=== PATIENT | female | born 1965 | race African-American/Black ===

== ENCOUNTER 2016-12-15 09:43 | Inpatient (IN) | payer OTHER ==
[2016-12-15 11:22] VITALS: BMI 23.3
--- NOTE | 2016-12-15 12:36 | HP ---
COWS - Scale Resting Pulse: 1= [place] 81-100 Sweatin=Flushed/Facial Moisture Restless Observation: 1= Difficult to Sit Still Pupil Size: 0= Normal to Room Light Bone or Joint Aches: 2= Severe Diffuse Aches Runny Nose/ Eye Tearin= Runny Nose/Eyes GI Upset > 30mins: 2= Nausea/Diarrhea Tremor Observation: 2= Slight Tremor Visible Yawning Observation: 2= >3x During Session Anxiety or Irritability: 2=Irritable/Anxious Goose Flesh Skin: 3=Piloerection COWS Score: 19 CIWA Score - CIWA Score Nausea/Vomitin-Mild Nausea/No Vomiting Muscle Tremors: 4-Moderate,w/Arms Extend Anxiety: 4-Mod. Anxious/Guarded Agitation: 4-Moderately Restless Paroxysmal Sweats: 3 Orientation: 0-Oriented Tacttile Disturbances: 0-None Auditory Disturbances: 0-None Visual Disturbances: 0-None Headache: 0-None Present CIWA-Ar Total Score: 16 Admission ROS S - HPI Chief Complaint: I am tired. Allergies/Adverse Reactions: Allergies Allergy/AdvReac Type Severity Reaction Status Date / Time No Known Allergies Allergy Verified 12/15/16 11:40 History of Present Illness: pt is a 51yr old female with a history of alcohol and heroin dependence seeking detox for treatment. Exam Limitations: No Limitations - Ebola screening Have you traveled outside of the country in the last 21 days: No Have you had contact with anyone from an Ebola affected area: No Have you been sick,other than usual withdrawal symptoms: No - Review of Systems Constitutional: Chills, Diaphoresis, Loss of Appetite, Night Sweats, Changes in sleep, Unintentional Wgt. Loss EENT: reports: No Symptoms Reported Respiratory: reports: Cough Cardiac: reports: No Symptoms Reported GI: reports: Poor Appetite, Poor Fluid Intake : reports: No Symptoms Reported Musculoskeletal: reports: Back Pain, Joint Pain Integumentary: reports: Flushing, Sweating Neuro: reports: Tingling, Tremors Endocrine: reports: Excessive Sweating, Flushing, Intolerance to Cold, Intolerance to Heat Hematology: reports: No Symptoms Reported Psychiatric: reports: Judgement Intact, Mood/Affect Appropiate, Orientated x3, Agitated, Anxious Other Systems: Reviewed and Negative Patient History - Patient Medical History Hx Anemia: No Hx Asthma: No Hx Chronic Obstructive Pulmonary Disease (COPD): No Hx Cancer: No Hx Cardiac Disorders: No Hx Congestive Heart Failure: No Hx Hypertension: No Hx Hypercholesterolemia: No Hx Pacemaker: No HX Cerebrovascular Accident: No Hx Seizures: No Hx Dementia: No Hx Diabetes: No Hx Gastrointestinal Disorders: Yes (GERD) Hx Liver Disease: No Hx Genitourinary Disorders: No Hx Sexually Transmitted Disorders: No Hx Renal Disease (ESRD): No Hx Thyroid Disease: No Hx Human Immunodeficiency Virus (HIV): No Hx Hepatitis C: No Hx Depression: No Hx Suicide Attempt: No (denies) Hx Bipolar Disorder: No Hx Schizophrenia: No - Patient Surgical History Past Surgical History: Yes Hx Neurologic Surgery: No Hx Cataract Extraction: No Hx Cardiac Surgery: No Hx Lung Surgery: No Hx Breast Surgery: No Hx Breast Biopsy: Yes (11/2012 L breast biopsy benign) Hx Abdominal Surgery: Yes (s/p hepatic stent) Hx Appendectomy: No Hx Cholecystectomy: No Hx Genitourinary Surgery: No Hx Section: No Hx Orthopedic Surgery: No Hx Hysterectomy: No Anesthesia Reaction: No - PPD History Previous Implant?: Yes Documented Results: Negative w/o proof Implanted On Prior [facility] Admission?: Yes PPD to be Administered?: Yes - Reproductive History Patient is a Female of Child Bearing Age (11 -55 yrs old): Yes Last Menstrual Period: 07/12/11 Patient : No - Smoking Cessation Smoking history: Current every day smoker Aproximately how many cigarettes per day: 30 Hx Chewing Tobacco Use: No Initiated information on smoking cessation: Yes 'Breaking Loose' booklet given: 12/15/16 - Substance & Tx. History Hx Alcohol Use: Yes Hx Substance Use: Yes Substance Use Type: Alcohol, Heroin Hx Substance Use Treatment: No - Substances Abused Alcohol Route: Oral Frequency: Daily Amount used: 6PK BEER/ 1/2 PINT RUM Age of first use: 17 Date of Last Use: 12/15/16 Heroin Route: Inhalation Frequency: Daily Amount used: 2-3 BAGS Age of first use: 17 Date of Last Use: 12/14/16 Family Disease History - Family Disease History Family History: Denies Admission Physical Exam [facility] - Vital Signs Vital Signs: Vital Signs - 24 hr 12/15/16 11:18 Temperature 98 F Pulse Rate 85 Respiratory 20 Rate Blood Pressure 128/96 - Physical General Appearance: Yes: Appropriately Dressed, Moderate Distress, Tremorous, Irritable, Sweating, Anxious HEENTM: Yes: Normal Voice, Nasal Congestion Respiratory: Yes: Lungs Clear, Normal Breath Sounds, No Respiratory Distress Neck: Yes: No masses,lesions,Nodules Breast: Yes: Within Normal Limits Cardiology: Yes: Regular Rhythm, Regular Rate, S1, S2 Abdominal: Yes: Normal Bowel Sounds, Non Tender, Soft Genitourinary: Yes: Within Normal Limits Back: Yes: Normal Inspection Musculoskeletal: Yes: Back pain Neurological: Yes: Fully Oriented, Alert, Normal Response Integumentary: Yes: Diaphoresis Lymphatic: Yes: Within Normal Limits - Diagnostic (1) Alcohol dependence with uncomplicated withdrawal Current Visit: Yes Status: Chronic (2) Nicotine dependence Current Visit: Yes Status: Chronic Qualifiers: Nicotine product type: cigarettes Substance use status: uncomplicated Qualified Code(s): F17.210 - Nicotine dependence, cigarettes, uncomplicated (3) GERD (gastroesophageal reflux disease) Current Visit: Yes Status: Chronic Qualifiers: Esophagitis presence: without esophagitis Qualified Code(s): K21.9 - Gastro-esophageal reflux disease without esophagitis (4) Opioid dependence with withdrawal Current Visit: Yes Status: Chronic Cleared for Admission [facility] - Detox or Rehab [facility] Level of Care: Medically Managed Detox Regimen/Protocol: Methadone/Librium [facility] Breath Alcohol Content Breath Alcohol Content: 0.065 Urine Pregancy Test - Result Urine Test Results: Negative- NO Line Present Urine Drug Screen - Results Drug Screen Negative: No Urine Drug Screen Results: OPI-Opiates, BZO-Benzodiazepines
[2016-12-15] MEDS ORDERED: guaiFENesin/D-METHORPHAN HB 10 ML UNIT-DOSE CUPS PO PRN (12:37)
[2016-12-15] MEDS ORDERED: IBUPROFEN 400 MG TABLET (FP) PO PRN (12:37)
[2016-12-15] MEDS ORDERED: ACETAMINOPHEN 325 MG TABLET (FP) PO PRN (12:37)
[2016-12-15] MEDS ORDERED: NICOTINE POLACRILEX 4 MG GUM BUC PRN (12:37)
[2016-12-15] MEDS ORDERED: MAG HYDROX/AL HYDROX/SIMETH 30 ML UNIT-DOSE CUP PO PRN (12:37)
[2016-12-15] MEDS ORDERED: MENTHOL/PHENOL 1 EACH UD MM PRN (12:37)
[2016-12-15] MEDS ORDERED: MAGNESIUM CITRATE 300 ML BOTTLE PO PRN (12:37)
[2016-12-15] MEDS ORDERED: chlordiazePOXIDE HCL 25 MG CAPSULE PO PRN (12:37)
[2016-12-15] MEDS ORDERED: MAGNESIUM HYDROX 2400MG/30ML ORAL SUSPENSION 30 ML CUP PO PRN (12:37)
[2016-12-15] MEDS ORDERED: P-EPHED 60MG/TRIPROLIDI 2.5MG TABLET PO PRN (12:37)
[2016-12-15] MEDS ORDERED: LOPERAMIDE HCL 2 MG CAPSULE PO PRN (12:37)
[2016-12-15] MEDS ORDERED: hydrOXYzine PAMOATE 50 MG CAPSULE (FP) PO PRN (12:37)
[2016-12-15] MEDS ORDERED: chlordiazePOXIDE HCL 25 MG CAPSULE PO ONE ×2 (12:54→15:20)
[2016-12-15] MEDS ORDERED: METHADONE HCL 10 MG TABLET (FOR DETOX USE ONLY) PO ONE ×3 (12:55→23:00)
[2016-12-15] MEDS: chlordiazePOXIDE HCL 25 MG CAPSULE PO SCH ×2 (18:05→22:31)
[2016-12-15 20:21] LABS: URINE APPEARANCE CLEAR; URINE BILIRUBIN NEGATIVE (NEGATIVE); URINE BLOOD NEGATIVE (NEGATIVE); URINE COLOR COLORLESS; URINE GLUCOSE (UA) NEGATIVE (NEGATIVE); URINE KETONE NEGATIVE (NEGATIVE); URINE NITRITE NEGATIVE (NEGATIVE); URINE PROTEIN NEGATIVE (NEGATIVE); URINE UROBILINOGEN NEGATIVE E.U./dl (0.2-1.0)
[2016-12-15 21:05] LABS: URINE LEUK ESTERASE 1+ (NEGATIVE)
[2016-12-15 21:10] LABS: URINE RBC 2 /hpf (0-3); URINE WBC 1 /hpf (3-5)
[2016-12-15] MEDS: THIAMINE HCL 100 MG TABLET (FP) PO SCH (22:31)
[2016-12-15] MEDS: diphenhydrAMINE HCL 50 MG CAPSULE PO PRN (22:33)
[2016-12-16] MEDS: chlordiazePOXIDE HCL 25 MG CAPSULE PO SCH ×4 (05:28→22:54)
--- NOTE | 2016-12-16 09:22 | EKG ---
Test Reason : Blood Pressure : / mmHG Vent. Rate : 082 BPM Atrial Rate : 082 BPM P-R Int : 166 ms QRS Dur : 092 ms QT Int : 388 ms P-R-T Axes : 077 058 053 degrees QTc Int : 453 ms NORMAL SINUS RHYTHM VOLTAGE CRITERIA FOR LEFT VENTRICULAR HYPERTROPHY ABNORMAL ECG NO PREVIOUS ECGS AVAILABLE Confirmed by RYAN BELL MD ([id number]) on 12/16/2016 9:22:41 AM Referred By: Solo Farah Confirmed By:RYAN BELL MD
[2016-12-16] MEDS ORDERED: METHADONE HCL 10 MG TABLET (FOR DETOX USE ONLY) PO SCH (10:00)
[2016-12-16 10:03] LABS: MCH 33.6 pg (25.7-33.7); MCHC 33.4 g/dl (32.0-36.0); MEAN CELL VOLUME 100.4 fl (80-96); MEAN PLT VOLUME 7.8 fl (7.5-11.1); PLATELET COUNT 287 K/MM3 (134-434); RDW 12.5 % (11.6-15.6)
[2016-12-16 10:18] LABS: ALBUMIN 3.1 g/dl (3.4-5.0); ANION GAP 9 (8-16); CO2 27 mmol/L (21-32); GLUCOSE,RANDOM 75 mg/dL (74-106)
[2016-12-16] MEDS: NICOTINE 21 MG/24 HOURS TOPICAL PATCH TD SCH (10:20)
[2016-12-16] MEDS: PRENATAL VITAMINS W/ FOLIC ACID TABLET (FP) PO SCH (10:20)
[2016-12-16 10:23] LABS: ALK PHOS 128 U/L (45-117); BILIRUBIN,TOTAL 0.3 mg/dL (0.2-1.0); CREATININE 0.5 mg/dL (0.55-1.02); SGOT/AST 27 U/L (15-37); SGPT/ALT 29 U/L (12-78); TOT PROT 8.2 g/dl (6.4-8.2)
--- NOTE | 2016-12-16 11:09 | PN ---
[facility] CIWA - CIWA Score Nausea/Vomitin-No Nausea/No Vomiting Muscle Tremors: 4-Moderate,w/Arms Extend Anxiety: 3 Agitation: 4-Moderately Restless Paroxysmal Sweats: 3 Orientation: 0-Oriented Tacttile Disturbances: 0-None Auditory Disturbances: 0-None Visual Disturbances: 0-None Headache: 0-None Present CIWA-Ar Total Score: 14 S COWS - Scale Resting Pulse: 0= [place] 80 or Below Sweatin=Flushed/Facial Moisture Restless Observation: 1= Difficult to Sit Still Pupil Size: 0= Normal to Room Light Bone or Joint Aches: 2= Severe Diffuse Aches Runny Nose/ Eye Tearin= Runny Nose/Eyes GI Upset > 30mins: 0= None Tremor Observation of Outstretched Hands: 2= Slight Tremor Visible Yawning Observation: 0= None Anxiety or Irritability: 2=Irritable/Anxious Goose Flesh Skin: 3=Piloerection COWS Score: 14 [facility] Progress Note (SOAP) Subjective: agitation anxiety sweats interrupted sleep irritable Objective: 12/16/16 11:09 Vital Signs Temperature 98.4 F 12/16/16 10:12 Pulse Rate 75 12/16/16 10:12 Respiratory Rate 16 12/16/16 10:12 Blood Pressure 140/92 12/16/16 10:12 O2 Sat by Pulse Oximetry (%) Laboratory Tests 12/15/16 12/16/16 12/16/16 14:00 06:00 06:00 WBC 7.0 D RBC 3.79 Hgb 12.7 Hct 38.0 MCV 100.4 H MCHC 33.4 RDW 12.5 Plt Count 287 D MPV 7.8 Sodium 134 L Potassium 4.4 Chloride 98 Carbon Dioxide 27 Anion Gap 9 BUN 5 L D Creatinine 0.5 L D Creat Clearance w eGFR > 60 Random Glucose 75 Calcium 9.0 Total Bilirubin 0.3 D AST 27 D ALT 29 Alkaline Phosphatase 128 H Total Protein 8.2 Albumin 3.1 L D Urine Color Colorless Urine Appearance Clear Urine pH 5.0 Ur Specific [place] 1.002 Urine Protein Negative Urine Glucose (UA) Negative Urine Ketones Negative Urine Blood Negative Urine Nitrite Negative Urine Bilirubin Negative Urine Urobilinogen Negative Ur Leukocyte Esterase 1+ H Urine RBC 2 Urine WBC 1 Ur Epithelial Cells Rare awake/alert ambulating no acute distress Assessment: 12/16/16 11:09 withdrawal sx Plan: continue detox increase fluids
[2016-12-16] MEDS: diphenhydrAMINE HCL 50 MG CAPSULE PO PRN (22:54)
[2016-12-16] MEDS: THIAMINE HCL 100 MG TABLET (FP) PO SCH (22:54)
[2016-12-17] MEDS: chlordiazePOXIDE HCL 25 MG CAPSULE PO SCH ×2 (05:29→11:13)
[2016-12-17] MEDS: NICOTINE 21 MG/24 HOURS TOPICAL PATCH TD SCH (11:12)
[2016-12-17] MEDS: PRENATAL VITAMINS W/ FOLIC ACID TABLET (FP) PO SCH (11:12)
[2016-12-17] MEDS: METHADONE HCL 5 MG TABLET (FOR DETOX USE ONLY) PO SCH (11:16)
--- NOTE | 2016-12-17 17:11 | PN ---
S CIWA - CIWA Score Nausea/Vomitin-Mild Nausea/No Vomiting Muscle Tremors: 4-Moderate,w/Arms Extend Anxiety: 3 Agitation: 2 Paroxysmal Sweats: 3 Orientation: 0-Oriented Tacttile Disturbances: 2-Mild Itch/Numbness/Burn Auditory Disturbances: 0-None Visual Disturbances: 0-None Headache: 3-Moderate CIWA-Ar Total Score: 18 [facility] COWS - Scale Resting Pulse: 1= [place] 81-100 Sweatin= Chills/Flushing Restless Observation: 1= Difficult to Sit Still Pupil Size: 0= Normal to Room Light Bone or Joint Aches: 2= Severe Diffuse Aches Runny Nose/ Eye Tearin= Nasal Congestion GI Upset > 30mins: 1= Stomach Cramp Tremor Observation of Outstretched Hands: 2= Slight Tremor Visible Yawning Observation: 0= None Anxiety or Irritability: 2=Irritable/Anxious Goose Flesh Skin: 3=Piloerection COWS Score: 14 [facility] Progress Note (SOAP) Subjective: Tremors, Interrupted sleep, Body aches, Sweating. Objective: PT. A & O X 3, OBSERVED AMBULATING ON UNIT. 12/17/16 17:09 Vital Signs Temperature 97.9 F 12/17/16 14:35 Pulse Rate 79 12/17/16 14:35 Respiratory Rate 18 12/17/16 14:35 Blood Pressure 136/82 12/17/16 14:35 O2 Sat by Pulse Oximetry (%) Laboratory Last Values WBC 7.0 K/mm3 (4.0-10.0) D 12/16/16 06:00 RBC 3.79 M/mm3 (3.60-5.2) 12/16/16 06:00 Hgb 12.7 GM/dL (10.7-15.3) 12/16/16 06:00 Hct 38.0 % (32.4-45.2) 12/16/16 06:00 MCV 100.4 fl (80-96) H 12/16/16 06:00 MCHC 33.4 g/dl (32.0-36.0) 12/16/16 06:00 RDW 12.5 % (11.6-15.6) 12/16/16 06:00 Plt Count 287 K/MM3 (134-434) D 12/16/16 06:00 MPV 7.8 fl (7.5-11.1) 12/16/16 06:00 Sodium 134 mmol/L (136-145) L 12/16/16 06:00 Potassium 4.4 mmol/L (3.5-5.1) 12/16/16 06:00 Chloride 98 mmol/L (98-107) 12/16/16 06:00 Carbon Dioxide 27 mmol/L (21-32) 12/16/16 06:00 Anion Gap 9 (8-16) 12/16/16 06:00 BUN 5 mg/dL (7-18) L D 12/16/16 06:00 Creatinine 0.5 mg/dL (0.55-1.02) L D 12/16/16 06:00 Creat Clearance w eGFR > 60 (>60) 12/16/16 06:00 Random Glucose 75 mg/dL (74-106) 12/16/16 06:00 Calcium 9.0 mg/dL (8.5-10.1) 12/16/16 06:00 Total Bilirubin 0.3 mg/dL (0.2-1.0) D 12/16/16 06:00 AST 27 U/L (15-37) D 12/16/16 06:00 ALT 29 U/L (12-78) 12/16/16 06:00 Alkaline Phosphatase 128 U/L (45-117) H 12/16/16 06:00 Total Protein 8.2 g/dl (6.4-8.2) 12/16/16 06:00 Albumin 3.1 g/dl (3.4-5.0) L D 12/16/16 06:00 Urine Color Colorless 12/15/16 14:00 Urine Appearance Clear 12/15/16 14:00 Urine pH 5.0 (5.0-8.0) 12/15/16 14:00 Ur Specific [place] 1.002 (1.001-1.035) 12/15/16 14:00 Urine Protein Negative (NEGATIVE) 12/15/16 14:00 Urine Glucose (UA) Negative (NEGATIVE) 12/15/16 14:00 Urine Ketones Negative (NEGATIVE) 12/15/16 14:00 Urine Blood Negative (NEGATIVE) 12/15/16 14:00 Urine Nitrite Negative (NEGATIVE) 12/15/16 14:00 Urine Bilirubin Negative (NEGATIVE) 12/15/16 14:00 Urine Urobilinogen Negative E.U./dl (0.2-1.0) 12/15/16 14:00 Ur Leukocyte Esterase 1+ (NEGATIVE) H 12/15/16 14:00 Urine RBC 2 /hpf (0-3) 12/15/16 14:00 Urine WBC 1 /hpf (3-5) 12/15/16 14:00 Ur Epithelial Cells Rare /hpf (FEW) 12/15/16 14:00 RPR Titer Nonreactive (NONREACTIVE) 12/16/16 06:00 LABS NOTED. Assessment: 12/17/16 17:10 WITHDRAWAL SYMPTOMS. Plan: CONTINUE DETOX. ADVISED PATIENT TO FOLLOW-UP WITH [facility] / REHAB MEDICAL PROVIDER AFTER DISCHARGE FROM DETOX FOR GENERAL MEDICAL ASSESSMENT AND FOR ABNORMAL ADMISSION LAB VALUES.
[2016-12-17] MEDS: chlordiazePOXIDE 5 MG CAPSULE PO SCH ×2 (17:33→22:28)
[2016-12-17] MEDS: THIAMINE HCL 100 MG TABLET (FP) PO SCH (22:28)
[2016-12-17] MEDS: diphenhydrAMINE HCL 50 MG CAPSULE PO PRN (22:28)
[2016-12-18] MEDS: chlordiazePOXIDE 5 MG CAPSULE PO SCH ×2 (05:37→10:40)
[2016-12-18] MEDS: METHADONE HCL 5 MG TABLET (FOR DETOX USE ONLY) PO SCH (10:40)
[2016-12-18] MEDS: PRENATAL VITAMINS W/ FOLIC ACID TABLET (FP) PO SCH (10:40)
[2016-12-18] MEDS: NICOTINE 21 MG/24 HOURS TOPICAL PATCH TD SCH (10:42)
--- NOTE | 2016-12-18 16:40 | PN ---
[facility] Progress Note (SOAP) Subjective: Sweating, n/v/d, anxious, interrupted sleep Objective: 12/18/16 16:38 Last Vital Signs Temp Pulse Resp BP Pulse Ox 97.9 F 75 18 144/90 12/18/16 14:17 12/18/16 14:17 12/18/16 14:17 12/18/16 14:17 Laboratory Tests 12/15/16 12/16/16 12/16/16 14:00 06:00 06:00 WBC 7.0 D RBC 3.79 Hgb 12.7 Hct 38.0 MCV 100.4 H MCHC 33.4 RDW 12.5 Plt Count 287 D MPV 7.8 Sodium 134 L Potassium 4.4 Chloride 98 Carbon Dioxide 27 Anion Gap 9 BUN 5 L D Creatinine 0.5 L D Creat Clearance w eGFR > 60 Random Glucose 75 Calcium 9.0 Total Bilirubin 0.3 D AST 27 D ALT 29 Alkaline Phosphatase 128 H Total Protein 8.2 Albumin 3.1 L D Urine Color Colorless Urine Appearance Clear Urine pH 5.0 Ur Specific [place] 1.002 Urine Protein Negative Urine Glucose (UA) Negative Urine Ketones Negative Urine Blood Negative Urine Nitrite Negative Urine Bilirubin Negative Urine Urobilinogen Negative Ur Leukocyte Esterase 1+ H Urine RBC 2 Urine WBC 1 Ur Epithelial Cells Rare RPR Titer 12/16/16 06:00 WBC RBC Hgb Hct MCV MCHC RDW Plt Count MPV Sodium Potassium Chloride Carbon Dioxide Anion Gap BUN Creatinine Creat Clearance w eGFR Random Glucose Calcium Total Bilirubin AST ALT Alkaline Phosphatase Total Protein Albumin Urine Color Urine Appearance Urine pH Ur Specific [place] Urine Protein Urine Glucose (UA) Urine Ketones Urine Blood Urine Nitrite Urine Bilirubin Urine Urobilinogen Ur Leukocyte Esterase Urine RBC Urine WBC Ur Epithelial Cells RPR Titer Nonreactive Labs noted Assessment: 12/18/16 16:39 Withdrawal symptoms Plan: Continue detox
[2016-12-18] MEDS: chlordiazePOXIDE HCL 10 MG CAPSULE PO SCH ×2 (17:29→22:25)
[2016-12-18] MEDS: THIAMINE HCL 100 MG TABLET (FP) PO SCH (22:25)
[2016-12-18] MEDS: diphenhydrAMINE HCL 50 MG CAPSULE PO PRN (22:25)
[2016-12-19] MEDS: chlordiazePOXIDE HCL 10 MG CAPSULE PO SCH ×2 (05:20→10:52)
[2016-12-19] MEDS ORDERED: METHADONE HCL 10 MG TABLET (FOR DETOX USE ONLY) PO SCH (10:00)
[2016-12-19] MEDS: PRENATAL VITAMINS W/ FOLIC ACID TABLET (FP) PO SCH (10:52)
[2016-12-19] MEDS: NICOTINE 21 MG/24 HOURS TOPICAL PATCH TD SCH (10:53)
--- NOTE | 2016-12-19 12:39 | PN ---
[facility] Progress Note (SOAP) Subjective: interrupted sleep, sweats, Objective: 12/19/16 12:36 Vital Signs Temperature 97.5 F L 12/19/16 09:52 Pulse Rate 85 12/19/16 09:52 Respiratory Rate 20 12/19/16 09:52 Blood Pressure 122/78 12/19/16 09:52 O2 Sat by Pulse Oximetry (%) Laboratory Tests 12/15/16 12/16/16 12/16/16 14:00 06:00 06:00 WBC 7.0 D RBC 3.79 Hgb 12.7 Hct 38.0 MCV 100.4 H MCHC 33.4 RDW 12.5 Plt Count 287 D MPV 7.8 Sodium 134 L Potassium 4.4 Chloride 98 Carbon Dioxide 27 Anion Gap 9 BUN 5 L D Creatinine 0.5 L D Creat Clearance w eGFR > 60 Random Glucose 75 Calcium 9.0 Total Bilirubin 0.3 D AST 27 D ALT 29 Alkaline Phosphatase 128 H Total Protein 8.2 Albumin 3.1 L D Urine Color Colorless Urine Appearance Clear Urine pH 5.0 Ur Specific [place] 1.002 Urine Protein Negative Urine Glucose (UA) Negative Urine Ketones Negative Urine Blood Negative Urine Nitrite Negative Urine Bilirubin Negative Urine Urobilinogen Negative Ur Leukocyte Esterase 1+ H Urine RBC 2 Urine WBC 1 Ur Epithelial Cells Rare RPR Titer 12/16/16 06:00 WBC RBC Hgb Hct MCV MCHC RDW Plt Count MPV Sodium Potassium Chloride Carbon Dioxide Anion Gap BUN Creatinine Creat Clearance w eGFR Random Glucose Calcium Total Bilirubin AST ALT Alkaline Phosphatase Total Protein Albumin Urine Color Urine Appearance Urine pH Ur Specific [place] Urine Protein Urine Glucose (UA) Urine Ketones Urine Blood Urine Nitrite Urine Bilirubin Urine Urobilinogen Ur Leukocyte Esterase Urine RBC Urine WBC Ur Epithelial Cells RPR Titer Nonreactive pt aox3 in nad ambulating Assessment: 12/19/16 12:37 withdrawal sx's Plan: cont. detox increase fluids d/c in am
[2016-12-19] MEDS: THIAMINE HCL 100 MG TABLET (FP) PO SCH (22:28)
[2016-12-19] MEDS: diphenhydrAMINE HCL 50 MG CAPSULE PO PRN (22:28)
[2016-12-20] MEDS ORDERED: METHADONE HCL 5 MG TABLET (FOR DETOX USE ONLY) PO SCH (06:00)
[2016-12-20 06:55] VITALS: BP 125/70; PULSE 66; TEMP 97.7
--- NOTE | 2016-12-20 08:36 | DS ---
[facility] Detox Discharge Summary Admission Date: 12/15/16 Discharge Date: 12/20/16 - History Present History: Alcohol Dependence, Opioid Dependence - Physical Exam Results Vital Signs: Vital Signs Temperature 97.7 F 12/20/16 06:00 Pulse Rate 66 12/20/16 06:00 Respiratory Rate 18 12/20/16 06:00 Blood Pressure 125/70 12/20/16 06:00 O2 Sat by Pulse Oximetry (%) - Treatment Hospital Course: Detox Protocol Followed, Detoxed Safely, Responded well, Discharged Condition Good - Medication Discharge Medications: Ambulatory Orders NK [No Known Home Medication] 06/05/15 - AMA Did Patient Leave Against Medical Advice: No
[2016-12-20] MEDS: PRENATAL VITAMINS W/ FOLIC ACID TABLET (FP) PO SCH (09:55)
[2016-12-20] MEDS: NICOTINE 21 MG/24 HOURS TOPICAL PATCH TD SCH (09:55)
== END 2016-12-20 09:54 | disposition home or self-care (01) | DRG 773 ==
LOC: YASAS 09:43 → Y6N 11:58
PROVIDERS: ADMIT Internal Medicine Addiction Medicine; ATTEND Internal Medicine Addiction Medicine
PROC: HZ2ZZZZ Detoxification Services for Substance Abuse Treatment (ICD-10-PCS; principal; 2016-12-20)
DX: F11.23 Opioid dependence with withdrawal (principal); F10.230 Alcohol dependence with withdrawal, uncomplicated; F17.210 Nicotine dependence, cigarettes, uncomplicated; K21.9 Gastro-esophageal reflux disease without esophagitis
CPT/HCPCS: 36415; 80053; 81003; 81015; 85027; 86593; 93005; 93010

== ENCOUNTER 2017-09-29 11:32 | Inpatient (IN) | payer OTHER ==
[2017-09-29 15:58] VITALS: BMI 25.1
--- NOTE | 2017-09-29 18:35 | HP ---
CIWA Score - CIWA Score Nausea/Vomitin Muscle Tremors: 4-Moderate,w/Arms Extend Anxiety: 4-Mod. Anxious/Guarded Agitation: 2 Paroxysmal Sweats: 3 Orientation: 0-Oriented Tacttile Disturbances: 0-None Auditory Disturbances: 0-None Visual Disturbances: 0-None Headache: 0-None Present CIWA-Ar Total Score: 16 Admission ROS S - HPI Chief Complaint: Alcohol withdrawal symptoms Allergies/Adverse Reactions: Allergies Allergy/AdvReac Type Severity Reaction Status Date / Time No Known Allergies Allergy Verified 09/29/17 16:42 History of Present Illness: 52 years old female with history of alcohol dependence is seeking admission to detox. Patient has been in previous detox and reports 3 years of sobriety. Denies suicidal ideation at this time. She has medical history HTN, GERD and depression. Patient is Methadone 60 mg oral daily with [facility] M[facility]. LDM . Dose is to be confirmed by the nurse. - Ebola screening Have you traveled outside of the country in the last 21 days: No Have you had contact with anyone from an Ebola affected area: No Have you been sick,other than usual withdrawal symptoms: No - Review of Systems Constitutional: Chills, Loss of Appetite, Malaise, Night Sweats, Weakness EENT: reports: No Symptoms Reported Respiratory: reports: No Symptoms reported Cardiac: reports: No Symptoms Reported GI: reports: Nausea, Poor Appetite, Poor Fluid Intake : reports: No Symptoms Reported Musculoskeletal: reports: No Symptoms Reported Integumentary: reports: No Symptoms Reported, Dryness, Flushing Neuro: reports: Headache, Tingling, Tremors, Weakness Endocrine: reports: No Symptoms Reported Hematology: reports: No Symptoms Reported Psychiatric: reports: Mood/Affect Appropiate, Orientated x3, Agitated, Anxious Other Systems: Reviewed and Negative Patient History - Patient Medical History Hx Anemia: No Hx Asthma: No Hx Chronic Obstructive Pulmonary Disease (COPD): No Hx Cancer: No Hx Cardiac Disorders: No Hx Congestive Heart Failure: No Hx Hypertension: Yes Hx Hypercholesterolemia: No Hx Pacemaker: No HX Cerebrovascular Accident: No Hx Seizures: No Hx Dementia: No Hx Diabetes: No Hx Gastrointestinal Disorders: Yes (GERD) Hx Liver Disease: No Hx Genitourinary Disorders: No Hx Sexually Transmitted Disorders: No Hx Renal Disease (ESRD): No Hx Thyroid Disease: No Hx Human Immunodeficiency Virus (HIV): No Hx Hepatitis C: No Hx Depression: Yes Hx Suicide Attempt: No (Denies suicidal ideation at this time) Hx Bipolar Disorder: No Hx Schizophrenia: No - Patient Surgical History Past Surgical History: Yes Hx Neurologic Surgery: No Hx Cataract Extraction: No Hx Cardiac Surgery: No Hx Lung Surgery: No Hx Breast Surgery: No Hx Breast Biopsy: Yes (11/2012 L breast biopsy benign) Hx Abdominal Surgery: Yes (s/p hepatic stent) Hx Appendectomy: No Hx Cholecystectomy: No Hx Genitourinary Surgery: No Hx Section: No Hx Orthopedic Surgery: No Hx Hysterectomy: No Anesthesia Reaction: No - PPD History Previous Implant?: Yes Documented Results: Negative w/proof Implanted On Prior [facility] Admission?: No Date: 12/17/16 Results: 0 mm PPD to be Administered?: Yes - Reproductive History Patient is a Female of Child Bearing Age (11 -55 yrs old): Yes Last Menstrual Period: 07/12/11 Patient : No - Smoking Cessation Smoking history: Current every day smoker Aproximately how many cigarettes per day: 30 Hx Chewing Tobacco Use: No Initiated information on smoking cessation: No 'Breaking Loose' booklet given: 09/29/17 - Substance & Tx. History Hx Alcohol Use: Yes Substance Use Type: Alcohol Hx Substance Use Treatment: Yes ([facility] ) - Substances Abused Alcohol Route: Oral Frequency: Daily Amount used: liquor- 1 pint, beer- 2 six pack Age of first use: 14 Date of Last Use: 09/29/17 Family Disease History - Family Disease History Family History: Denies Admission Physical Exam [facility] - Vital Signs Vital Signs: Vital Signs - 24 hr 09/29/17 15:55 Temperature 96.4 F L Pulse Rate 91 H Respiratory 20 Rate Blood Pressure 164/90 - Physical General Appearance: Yes: Moderate Distress HEENTM: Yes: EOMI, Normal ENT Inspection, Normal Voice, DOROTHY, Other (missing upper teeth) Respiratory: Yes: Normal Breath Sounds, No Respiratory Distress Neck: Yes: Supple Breast: Yes: Breast Exam Deferred Cardiology: Yes: Regular Rhythm, Regular Rate, S1, S2 Abdominal: Yes: Normal Bowel Sounds, Soft Genitourinary: Yes: Within Normal Limits Back: Yes: Within Normal Limits Musculoskeletal: Yes: Within Normal Limits, Muscle Pain Extremities: Yes: Tremors Neurological: Yes: Within Normal Limits Integumentary: Yes: Within Normal Limits Lymphatic: Yes: Within Normal Limits - Diagnostic (1) HTN (hypertension) Current Visit: Yes Status: Chronic (2) Alcohol dependence with uncomplicated withdrawal Current Visit: Yes Status: Chronic (3) GERD (gastroesophageal reflux disease) Current Visit: Yes Status: Chronic Qualifiers: Esophagitis presence: without esophagitis Qualified Code(s): K21.9 - Gastro -esophageal reflux disease without esophagitis (4) Nicotine dependence Current Visit: Yes Status: Chronic Qualifiers: Nicotine product type: cigarettes Substance use status: uncomplicated Qualified Code(s): F17.210 - Nicotine dependence, cigarettes, uncomplicated (5) Depression Current Visit: Yes Status: Chronic Cleared for Admission S - Detox or Rehab [facility] Level of Care: Medically Managed Detox Regimen/Protocol: Librium [facility] Breath Alcohol Content Breath Alcohol Content: 0.087 Urine Pregancy Test - Result Urine Test Results: Negative- NO Line Present Urine Drug Screen - Results Drug Screen Negative: No Urine Drug Screen Results: OPI-Opiates, BZO-Benzodiazepines, MTD-Methadone
[2017-09-29] MEDS ORDERED: guaiFENesin/D-METHORPHAN HB 10 ML UNIT-DOSE CUPS PO PRN (18:42)
[2017-09-29] MEDS ORDERED: ACETAMINOPHEN 325 MG TABLET (FP) PO PRN (18:42)
[2017-09-29] MEDS ORDERED: NICOTINE POLACRILEX 2 MG GUM BC PRN (18:42)
[2017-09-29] MEDS ORDERED: LOPERAMIDE HCL 2 MG CAPSULE PO PRN (18:42)
[2017-09-29] MEDS ORDERED: MAG HYDROX/AL HYDROX/SIMETH 30 ML UNIT-DOSE CUP PO PRN (18:42)
[2017-09-29] MEDS ORDERED: MAGNESIUM CITRATE 300 ML BOTTLE PO PRN (18:42)
[2017-09-29] MEDS ORDERED: P-EPHED 60MG/TRIPROLIDI 2.5MG TABLET PO PRN (18:42)
[2017-09-29] MEDS ORDERED: MAGNESIUM HYDROX 2400MG/30ML ORAL SUSPENSION 30 ML CUP PO PRN (18:42)
[2017-09-29] MEDS ORDERED: IBUPROFEN 400 MG TABLET (FP) PO PRN (18:42)
[2017-09-29] MEDS ORDERED: MENTHOL/PHENOL 1 EACH UD MM PRN (18:42)
[2017-09-29] MEDS: chlordiazePOXIDE HCL 25 MG CAPSULE PO PRN (20:18)
[2017-09-29] MEDS: THIAMINE HCL 100 MG TABLET (FP) PO SCH (22:08)
[2017-09-29] MEDS: chlordiazePOXIDE HCL 25 MG CAPSULE PO SCH (22:08)
[2017-09-29 22:52] LABS: URINE APPEARANCE SLCLOUDY; URINE BILIRUBIN NEGATIVE (NEGATIVE); URINE BLOOD NEGATIVE (NEGATIVE); URINE COLOR LTYELLOW; URINE GLUCOSE (UA) NEGATIVE (NEGATIVE); URINE KETONE NEGATIVE (NEGATIVE); URINE LEUK ESTERASE TRACE (NEGATIVE); URINE NITRITE NEGATIVE (NEGATIVE); URINE PROTEIN NEGATIVE (NEGATIVE); URINE UROBILINOGEN NEGATIVE mg/dL (0.2-1.0)
[2017-09-29 23:07] LABS: EPI CELLS FEW /HPF (FEW); URINE BACTERIA RARE /hpf (NONE SEEN); URINE MUCUS RARE
[2017-09-30] MEDS: chlordiazePOXIDE HCL 25 MG CAPSULE PO SCH ×4 (05:07→22:07)
[2017-09-30 10:02] LABS: ALBUMIN 3.4 g/dl (3.4-5.0); ANION GAP 10 (8-16); CALCIUM 8.7 mg/dL (8.5-10.1); CHLORIDE 88 mmol/L (98-107); CO2 27 mmol/L (21-32); GLUCOSE,RANDOM 79 mg/dL (74-106); SGOT/AST 22 U/L (15-37); SGPT/ALT 16 U/L (12-78); SODIUM 125 mmol/L (136-145)
[2017-09-30 10:03] LABS: HEMATOCRIT 38.4 % (32.4-45.2); HEMOGLOBIN 12.5 GM/dL (10.7-15.3); MCH 32.3 pg (25.7-33.7); MCHC 32.5 g/dl (32.0-36.0); MEAN CELL VOLUME 99.4 fl (80-96); MEAN PLT VOLUME 7.9 fl (7.5-11.1); PLATELET COUNT 324 K/MM3 (134-434); RBC 3.87 M/mm3 (3.60-5.2); RDW 12.7 % (11.6-15.6); WHITE BLOOD COUNT 11.2 K/mm3 (4.0-10.0)
[2017-09-30 10:06] LABS: ALK PHOS 154 U/L (45-117); BILIRUBIN,TOTAL 0.5 mg/dL (0.2-1.0); BLOOD UREA NITROGEN 3 mg/dL (7-18); CREATININE 0.5 mg/dL (0.55-1.02)
[2017-09-30] MEDS: PRENATAL VITAMINS W/ FOLIC ACID TABLET (FP) PO SCH (10:09)
[2017-09-30] MEDS: NICOTINE 14 MG/24 HOURS TOPICAL PATCH TD SCH (10:10)
--- NOTE | 2017-09-30 11:27 | PN ---
S CIWA - CIWA Score Nausea/Vomitin-Mild Nausea/No Vomiting Muscle Tremors: 4-Moderate,w/Arms Extend Anxiety: 4-Mod. Anxious/Guarded Agitation: 4-Moderately Restless Paroxysmal Sweats: 3 Orientation: 0-Oriented Tacttile Disturbances: 0-None Auditory Disturbances: 0-None Visual Disturbances: 0-None Headache: 0-None Present CIWA-Ar Total Score: 16 [facility] Progress Note (SOAP) Subjective: Sweating,interrupted sleep,restless, tremors, anxiety. Methadone clinic is not answering the phone & we cannot verify dose at this time. Since UDS is + for Methadone, we'll give pt. the maximum allowable dose of 40mg. We'll resume methadone 50mg when verified. Objective: 09/30/17 11:26 Vital Signs - 8 hr 09/30/17 09/30/17 09/30/17 03:30 06:05 10:16 Temperature 96.1 F L 97.9 F Pulse Rate 88 103 H Respiratory 18 18 18 Rate Blood Pressure 128/90 120/82 Laboratory Tests 09/29/17 09/30/17 09/30/17 Unknown 07:50 07:50 WBC 11.2 H D RBC 3.87 Hgb 12.5 Hct 38.4 MCV 99.4 H MCH 32.3 MCHC 32.5 RDW 12.7 Plt Count 324 MPV 7.9 Sodium 125 L Potassium 4.0 Chloride 88 L Carbon Dioxide 27 Anion Gap 10 BUN 3 L Creatinine 0.5 L Creat Clearance w eGFR > 60 Random Glucose 79 Calcium 8.7 Total Bilirubin 0.5 D AST 22 ALT 16 Alkaline Phosphatase 154 H Total Protein 9.0 H Albumin 3.4 Urine Color Ltyellow Urine Appearance Slcloudy Urine pH 5.0 Ur Specific [place] 1.006 Urine Protein Negative Urine Glucose (UA) Negative Urine Ketones Negative Urine Blood Negative Urine Nitrite Negative Urine Bilirubin Negative Urine Urobilinogen Negative Ur Leukocyte Esterase Trace Urine WBC (Auto) 2 Urine RBC (Auto) None Ur Epithelial Cells Few Urine Bacteria Rare Urine Mucus Rare labs noted Assessment: 09/30/17 11:27 Withdrawal sx. Plan: Continue detox
[2017-09-30] MEDS: METHADONE HCL 40 MG DISPERSABLE TABLET PO SCH (11:41)
--- NOTE | 2017-09-30 16:11 | CONSULT ---
[facility] Psychiatric Consult - Data Date of interview: 09/30/17 Admission source: [facility] Identifying data: Pt. is a 52 year old female, single, mother of three, and currently unemployed. This is one of multiple admissions for patient. Pt. admitted to for alcohol dependence. Substance Abuse History: Smoking Cessation. Smoking history: Current every day smoker. Aproximately how many cigarettes per day: 30. Hx Chewing Tobacco Use: No. Initiated information on smoking cessation: No. 'Breaking Loose' booklet given: 09/29/17. - Substance & Tx. History. Hx Alcohol Use: Yes. Substance Use Type: Alcohol. Hx Substance Use Treatment: Yes ([facility] ). - Substances Abused. Alcohol. Route: Oral. Frequency: Daily. Amount used: liquor- 1 pint, beer- 2 six pack. Age of first use: 14. Date of Last Use: 09/29/17 Medical History: Hypertension, GERD Psychiatric History: Pt. denies h/o psychiatric hospitalizations. Currently does not see an outpatient psychiatrist but reports [facility]PC three years ago. States she was diagnosed with MDD but is unable to recall previously prescribed psychotrophic medications. Pt. denies h/o suicide attempts. Physical/Sexual Abuse/Trauma History: Denies. Mental Status Exam - Mental Status Exam Alert and Oriented to: Time, Place, Person Cognitive Function: Good Patient Appearance: Unkempt Mood: Euthymic Affect: Mood Congruent Patient Behavior: Cooperative Speech Pattern: Appropriate Voice Loudness: Normal Thought Process: Goal Oriented Thought Disorder: Not Present Hallucinations: Denies Suicidal Ideation: Denies Homicidal Ideation: Denies Insight/Judgement: Poor Sleep: Poorly Appetite: Fair Muscle strength/Tone: Normal Gait/Station: Normal Psychiatric Findings - Problem List ([place] 1, 2,3) (1) Insomnia Current Visit: Yes Status: Acute (2) Alcohol dependence with uncomplicated withdrawal Current Visit: Yes Status: Acute (3) Nicotine dependence Current Visit: Yes Status: Chronic Qualifiers: Nicotine product type: cigarettes Substance use status: uncomplicated Qualified Code(s): F17.210 - Nicotine dependence, cigarettes, uncomplicated - Initial Treatment Plan Initial Treatment Plan: Psychoeducation provided. Detoxification in progress. Ambien 5mg qhs PRN ordered. Benefits and side effects (sleep walking) discussed. Verbal consent given. Will continue to monitor patient.
[2017-09-30] MEDS: chlordiazePOXIDE HCL 25 MG CAPSULE PO PRN (20:05)
[2017-09-30] MEDS: THIAMINE HCL 100 MG TABLET (FP) PO SCH (22:07)
[2017-09-30] MEDS: ZOLPIDEM TARTRATE 5 MG TABLET PO PRN (22:07)
[2017-10-01] MEDS: chlordiazePOXIDE HCL 25 MG CAPSULE PO SCH ×3 (05:05→18:25)
[2017-10-01] MEDS: METHADONE HCL 40 MG DISPERSABLE TABLET PO SCH (07:04)
--- NOTE | 2017-10-01 09:50 | PN ---
S CIWA - CIWA Score Nausea/Vomitin-No Nausea/No Vomiting Muscle Tremors: 3 Anxiety: 3 Agitation: 3 Paroxysmal Sweats: 1-Minimal Palms Moist Orientation: 0-Oriented Tacttile Disturbances: 1-Very Mild Itch/Numbness Auditory Disturbances: 0-None Visual Disturbances: 0-None Headache: 0-None Present CIWA-Ar Total Score: 11 BHS Progress Note (SOAP) Subjective: sweating tremor anxiety Objective: 10/01/17 09:50 Vital Signs Temperature 97.7 F 10/01/17 05:59 Pulse Rate 79 10/01/17 05:59 Respiratory Rate 18 10/01/17 05:59 Blood Pressure 118/71 10/01/17 05:59 O2 Sat by Pulse Oximetry (%) Laboratory Last Values WBC 11.2 K/mm3 (4.0-10.0) H D 09/30/17 07:50 RBC 3.87 M/mm3 (3.60-5.2) 09/30/17 07:50 Hgb 12.5 GM/dL (10.7-15.3) 09/30/17 07:50 Hct 38.4 % (32.4-45.2) 09/30/17 07:50 MCV 99.4 fl (80-96) H 09/30/17 07:50 MCH 32.3 pg (25.7-33.7) 09/30/17 07:50 MCHC 32.5 g/dl (32.0-36.0) 09/30/17 07:50 RDW 12.7 % (11.6-15.6) 09/30/17 07:50 Plt Count 324 K/MM3 (134-434) 09/30/17 07:50 MPV 7.9 fl (7.5-11.1) 09/30/17 07:50 Sodium 125 mmol/L (136-145) L 09/30/17 07:50 Potassium 4.0 mmol/L (3.5-5.1) 09/30/17 07:50 Chloride 88 mmol/L (98-107) L 09/30/17 07:50 Carbon Dioxide 27 mmol/L (21-32) 09/30/17 07:50 Anion Gap 10 (8-16) 09/30/17 07:50 BUN 3 mg/dL (7-18) L 09/30/17 07:50 Creatinine 0.5 mg/dL (0.55-1.02) L 09/30/17 07:50 Creat Clearance w eGFR > 60 (>60) 09/30/17 07:50 Random Glucose 79 mg/dL (74-106) 09/30/17 07:50 Calcium 8.7 mg/dL (8.5-10.1) 09/30/17 07:50 Total Bilirubin 0.5 mg/dL (0.2-1.0) D 09/30/17 07:50 AST 22 U/L (15-37) 09/30/17 07:50 ALT 16 U/L (12-78) 09/30/17 07:50 Alkaline Phosphatase 154 U/L (45-117) H 09/30/17 07:50 Total Protein 9.0 g/dl (6.4-8.2) H 09/30/17 07:50 Albumin 3.4 g/dl (3.4-5.0) 09/30/17 07:50 Urine Color Ltyellow 09/29/17 Unknown Urine Appearance Slcloudy 09/29/17 Unknown Urine pH 5.0 (5.0-8.0) 09/29/17 Unknown Ur Specific [place] 1.006 (1.001-1.035) 09/29/17 Unknown Urine Protein Negative (NEGATIVE) 09/29/17 Unknown Urine Glucose (UA) Negative (NEGATIVE) 09/29/17 Unknown Urine Ketones Negative (NEGATIVE) 09/29/17 Unknown Urine Blood Negative (NEGATIVE) 09/29/17 Unknown Urine Nitrite Negative (NEGATIVE) 09/29/17 Unknown Urine Bilirubin Negative (NEGATIVE) 09/29/17 Unknown Urine Urobilinogen Negative mg/dL (0.2-1.0) 09/29/17 Unknown Ur Leukocyte Esterase Trace (NEGATIVE) 09/29/17 Unknown Urine WBC (Auto) 2 /hpf (3-5) 09/29/17 Unknown Urine RBC (Auto) None /hpf (0-3) 09/29/17 Unknown Ur Epithelial Cells Few /HPF (FEW) 09/29/17 Unknown Urine Bacteria Rare /hpf (NONE SEEN) 09/29/17 Unknown Urine Mucus Rare 09/29/17 Unknown RPR Titer Nonreactive (NONREACTIVE) 09/30/17 07:50 lab noted Assessment: 10/01/17 09:51 withdrawal sx Plan: continue detox
[2017-10-01] MEDS: NICOTINE 14 MG/24 HOURS TOPICAL PATCH TD SCH (10:15)
[2017-10-01] MEDS: PRENATAL VITAMINS W/ FOLIC ACID TABLET (FP) PO SCH (10:15)
[2017-10-01] MEDS: chlordiazePOXIDE 5 MG CAPSULE PO SCH (22:22)
[2017-10-01] MEDS: THIAMINE HCL 100 MG TABLET (FP) PO SCH (22:22)
[2017-10-02] MEDS: chlordiazePOXIDE 5 MG CAPSULE PO SCH ×3 (05:25→17:25)
[2017-10-02] MEDS: METHADONE HCL 40 MG DISPERSABLE TABLET PO SCH (05:25)
--- NOTE | 2017-10-02 09:31 | PN ---
B[facility] Progress Note (SOAP) Subjective: shaky anxious poorl sleep Objective: 10/02/17 09:29 Vital Signs - 24 hr 10/01/17 10/01/17 10/01/17 10:19 14:06 17:23 Temperature 97.2 F L 98.2 F 98.2 F Pulse Rate 84 83 77 Respiratory 18 16 18 Rate Blood Pressure 135/83 124/76 140/85 10/01/17 10/02/17 10/02/17 23:03 03:30 06:14 Temperature 97.7 F 97.7 F Pulse Rate 82 75 Respiratory 18 18 18 Rate Blood Pressure 152/100 150/90 10/02/17 09:17 Temperature 98.2 F Pulse Rate 89 Respiratory 16 Rate Blood Pressure 121/79 Laboratory Tests 09/29/17 09/30/17 09/30/17 Unknown 07:50 07:50 WBC 11.2 H D RBC 3.87 Hgb 12.5 Hct 38.4 MCV 99.4 H MCH 32.3 MCHC 32.5 RDW 12.7 Plt Count 324 MPV 7.9 Sodium 125 L Potassium 4.0 Chloride 88 L Carbon Dioxide 27 Anion Gap 10 BUN 3 L Creatinine 0.5 L Creat Clearance w eGFR > 60 Random Glucose 79 Calcium 8.7 Total Bilirubin 0.5 D AST 22 ALT 16 Alkaline Phosphatase 154 H Total Protein 9.0 H Albumin 3.4 Urine Color Ltyellow Urine Appearance Slcloudy Urine pH 5.0 Ur Specific [place] 1.006 Urine Protein Negative Urine Glucose (UA) Negative Urine Ketones Negative Urine Blood Negative Urine Nitrite Negative Urine Bilirubin Negative Urine Urobilinogen Negative Ur Leukocyte Esterase Trace Urine WBC (Auto) 2 Urine RBC (Auto) None Ur Epithelial Cells Few Urine Bacteria Rare Urine Mucus Rare RPR Titer 09/30/17 07:50 WBC RBC Hgb Hct MCV MCH MCHC RDW Plt Count MPV Sodium Potassium Chloride Carbon Dioxide Anion Gap BUN Creatinine Creat Clearance w eGFR Random Glucose Calcium Total Bilirubin AST ALT Alkaline Phosphatase Total Protein Albumin Urine Color Urine Appearance Urine pH Ur Specific [place] Urine Protein Urine Glucose (UA) Urine Ketones Urine Blood Urine Nitrite Urine Bilirubin Urine Urobilinogen Ur Leukocyte Esterase Urine WBC (Auto) Urine RBC (Auto) Ur Epithelial Cells Urine Bacteria Urine Mucus RPR Titer Nonreactive Assessment: 10/02/17 09:30 alcohol dep mild withdrawal on taper Plan: cont detox taper dc in am if med stable
[2017-10-02] MEDS: PRENATAL VITAMINS W/ FOLIC ACID TABLET (FP) PO SCH (10:04)
[2017-10-02] MEDS: NICOTINE 14 MG/24 HOURS TOPICAL PATCH TD SCH (10:04)
--- NOTE | 2017-10-02 21:57 | EKG ---
Test Reason : Blood Pressure : / mmHG Vent. Rate : 087 BPM Atrial Rate : 087 BPM P-R Int : 154 ms QRS Dur : 086 ms QT Int : 400 ms P-R-T Axes : 074 054 050 degrees QTc Int : 481 ms NORMAL SINUS RHYTHM VOLTAGE CRITERIA FOR LEFT VENTRICULAR HYPERTROPHY PROLONGED QT ABNORMAL ECG WHEN COMPARED WITH ECG OF 15-DEC-2016 13:30, NO SIGNIFICANT CHANGE WAS FOUND Confirmed by KRISTINA AQUINO MD ([id number]) on 10/02/2017 9:56:26 PM Referred By: Confirmed By:KRISTINA AQUINO MD
[2017-10-02] MEDS: THIAMINE HCL 100 MG TABLET (FP) PO SCH (22:06)
[2017-10-02] MEDS: chlordiazePOXIDE HCL 10 MG CAPSULE PO SCH (22:06)
[2017-10-02] MEDS: ZOLPIDEM TARTRATE 5 MG TABLET PO PRN (22:06)
[2017-10-03] MEDS: chlordiazePOXIDE HCL 10 MG CAPSULE PO SCH ×2 (05:36→11:11)
[2017-10-03] MEDS: METHADONE HCL 40 MG DISPERSABLE TABLET PO SCH (05:36)
--- NOTE | 2017-10-03 08:36 | DS ---
[facility] Detox Discharge Summary Admission Date: 09/29/17 Discharge Date: 10/03/17 - History Present History: Alcohol Dependence, Opioid Dependence Pertinent Past History: See below - Physical Exam Results Vital Signs: Vital Signs Temperature 97.7 F 10/03/17 06:00 Pulse Rate 68 10/03/17 06:00 Respiratory Rate 18 10/03/17 06:00 Blood Pressure 154/85 10/03/17 06:00 O2 Sat by Pulse Oximetry (%) Pertinent Admission Physical Exam Findings: admitted in acute withdrawal medically stable on dc detox completed dc today Laboratory Tests 09/29/17 09/30/17 09/30/17 Unknown 07:50 07:50 WBC 11.2 H D RBC 3.87 Hgb 12.5 Hct 38.4 MCV 99.4 H MCH 32.3 MCHC 32.5 RDW 12.7 Plt Count 324 MPV 7.9 Sodium 125 L Potassium 4.0 Chloride 88 L Carbon Dioxide 27 Anion Gap 10 BUN 3 L Creatinine 0.5 L Creat Clearance w eGFR > 60 Random Glucose 79 Calcium 8.7 Total Bilirubin 0.5 D AST 22 ALT 16 Alkaline Phosphatase 154 H Total Protein 9.0 H Albumin 3.4 Urine Color Ltyellow Urine Appearance Slcloudy Urine pH 5.0 Ur Specific [place] 1.006 Urine Protein Negative Urine Glucose (UA) Negative Urine Ketones Negative Urine Blood Negative Urine Nitrite Negative Urine Bilirubin Negative Urine Urobilinogen Negative Ur Leukocyte Esterase Trace Urine WBC (Auto) 2 Urine RBC (Auto) None Ur Epithelial Cells Few Urine Bacteria Rare Urine Mucus Rare RPR Titer 09/30/17 07:50 WBC RBC Hgb Hct MCV MCH MCHC RDW Plt Count MPV Sodium Potassium Chloride Carbon Dioxide Anion Gap BUN Creatinine Creat Clearance w eGFR Random Glucose Calcium Total Bilirubin AST ALT Alkaline Phosphatase Total Protein Albumin Urine Color Urine Appearance Urine pH Ur Specific [place] Urine Protein Urine Glucose (UA) Urine Ketones Urine Blood Urine Nitrite Urine Bilirubin Urine Urobilinogen Ur Leukocyte Esterase Urine WBC (Auto) Urine RBC (Auto) Ur Epithelial Cells Urine Bacteria Urine Mucus RPR Titer Nonreactive Vital Signs - 24 hr 10/02/17 10/02/17 10/02/17 09:17 14:31 17:50 Temperature 98.2 F 98.2 F 98.1 F Pulse Rate 89 95 H 18 L Respiratory 16 18 80 H Rate Blood Pressure 121/79 137/85 142/86 10/02/17 10/03/17 10/03/17 22:50 00:30 03:30 Temperature 98.4 F Pulse Rate 18 L Respiratory 79 H 18 18 Rate Blood Pressure 148/97 10/03/17 06:00 Temperature 97.7 F Pulse Rate 68 Respiratory 18 Rate Blood Pressure 154/85 - Treatment Hospital Course: Detox Protocol Followed, Detoxed Safely, Responded well, Discharged Condition Good, Rehab Referral Accepted - Medication Discharge Medications: Ambulatory Orders NK [No Known Home Medication] 06/05/15 - Diagnosis (1) Alcohol dependence with uncomplicated withdrawal Current Visit: Yes Status: Acute (2) Insomnia Current Visit: Yes Status: Acute (3) Opioid dependence on agonist therapy Current Visit: Yes Status: Acute (4) Depression Current Visit: Yes Status: Chronic (5) GERD (gastroesophageal reflux disease) Current Visit: Yes Status: Chronic Qualifiers: Esophagitis presence: without esophagitis Qualified Code(s): K21.9 - Gastro -esophageal reflux disease without esophagitis (6) HTN (hypertension) Current Visit: Yes Status: Chronic (7) Nicotine dependence Current Visit: Yes Status: Chronic Qualifiers: Nicotine product type: cigarettes Substance use status: uncomplicated Qualified Code(s): F17.210 - Nicotine dependence, cigarettes, uncomplicated - AMA Did Patient Leave Against Medical Advice: No
[2017-10-03 09:26] VITALS: BP 130/68; PULSE 95; TEMP 96.9
[2017-10-03] MEDS: PRENATAL VITAMINS W/ FOLIC ACID TABLET (FP) PO SCH (10:05)
[2017-10-03] MEDS: NICOTINE 14 MG/24 HOURS TOPICAL PATCH TD SCH (11:08)
== END 2017-10-03 11:27 | disposition home or self-care (01) | DRG 773 ==
LOC: YASAS 11:32 → Y6N 16:54
PROVIDERS: ADMIT Internal Medicine; ATTEND Internal Medicine
PROC: HZ2ZZZZ Detoxification Services for Substance Abuse Treatment (ICD-10-PCS; principal; 2017-09-29)
DX: F10.230 Alcohol dependence with withdrawal, uncomplicated (principal); F11.20 Opioid dependence, uncomplicated; F17.210 Nicotine dependence, cigarettes, uncomplicated; F32.9 Major depressive disorder, single episode, unspecified; I10 Essential (primary) hypertension; G47.00 Insomnia, unspecified; K21.9 Gastro-esophageal reflux disease without esophagitis; Z96.0 Presence of urogenital implants
CPT/HCPCS: 36415; 80053; 81003; 81015; 85027; 86593; 93005; 93010